=== PATIENT | female | born 1955 | race Caucasian/White ===

== ENCOUNTER 2019-02-09 10:39 | Emergency (ER) | payer BC ==
--- NOTE | 2019-02-09 11:15 | ED ---
HPI Chest Pain - HPI Summary HPI Summary: This patient is a 63 year old F presenting to [facility] accompanied by with a chief complaint of intermittent episodes of sharp chest pain located under her left breast lasting 10-15 seconds each time, last episode being at 10:52 today, since 02/06/19 (3 days ago). Patient denies nausea and shortness of breath. The patient rates the pain 0/10 in severity currently. Symptoms aggravated by deep breathing. Symptoms alleviated by nothing. Patients states that patient has had an intermittent cough since 2014. Patient's states that patient has been seen at [place] for her cough with no significant work up results. - History of Current Complaint Chief Complaint: EDChestPainROMI Time Seen by Provider: 02/09/19 10:48 Hx Obtained From: Patient, Family/Vocational Coordinator - Onset/Duration: Started Days Ago - 3, Still Present Timing: Intermittent, Lasting Seconds - 10-15 seconds Current Severity: None Pain Intensity: 0 Pain Scale Used: 0-10 Numeric Chest Pain Location: Discrete at: - under left breast Character: Sharp/Stabbing Aggravating Factor(s): Deep Breaths Alleviating Factor(s): Nothing Associated Signs and Symptoms: Positive: Negative - nausea, shortness of breath - Allergy/Home Medications Allergies/Adverse Reactions: Allergies Allergy/AdvReac Type Severity Reaction Status Date / Time nitrofurantoin Allergy See Comment Verified 02/09/19 10:50 [From Macrobid] PMH/Surg Hx/FS Hx/Imm Hx Endocrine/Hematology History: Denies: Hx Diabetes Cardiovascular History: Denies: Hx Hypertension, Hx Pacemaker/ICD Respiratory History: Denies: Hx Asthma History: Denies: Hx Renal Disease Sensory History: Denies: Hx Hearing Aid Psychiatric History: Denies: Hx Panic Disorder - Cancer History Cancer Type, Location and Year: BASAL CELL Hx Chemotherapy: No Hx Radiation Therapy: No Hx Palliative Cancer Treatment: No - Surgical History Surgical History: Yes Surgery Procedure, Year, and Place: TONSILLECTOMY;. HEART CATH (NO STENTS); Infectious Disease History: No Infectious Disease History: Denies: Traveled Outside the [place] in Last 30 Days - Family History Known Family History: Positive: Diabetes, Other - [place] - Social History Alcohol Use: None Hx Substance Use: No Substance Use Type: Reports: None Hx Tobacco Use: No Smoking Status (MU): Never Smoked Tobacco Review of Systems Positive: Chest Pain Negative: Shortness Of Breath Negative: Nausea All Other Systems Reviewed And Are Negative: Yes Physical Exam - Summary Physical Exam Summary: Appearance: The patient is well-nourished in no acute distress and in no acute pain. Skin: The skin is warm and dry and skin color reflects adequate perfusion. HEENT: The head is normocephalic and atraumatic. The pupils are equal and reactive. The conjunctivae are clear and without drainage. Nares are patent and without drainage. Mouth reveals moist mucous membranes and the throat is without erythema and exudate. The external ears are intact. The ear canals are patent and without drainage. The tympanic membranes are intact. Neck: The neck is supple with full range of motion and non-tender. There are no carotid bruits. There is no neck vein distension. Respiratory: Chest is non-tender. Lungs are clear to auscultation and breath sounds are symmetrical and equal. Cardiovascular: Heart is regular rate and rhythm. There is no murmur or rub auscultated. There is no peripheral edema and pulses are symmetrical and equal. Abdomen: The abdomen is soft and non-tender. There are normal bowel sounds heard in all four quadrants and there is no organomegaly palpated. Musculoskeletal: There is no back tenderness noted. Extremities are non-tender with full range of motion. There is good capillary refill. There is no peripheral edema or calf tenderness elicited. Neurological: Patient is alert and oriented to person, place and time. The patient has symmetrical motor strength in all four extremities. Cranial nerves are grossly intact. Deep tendon reflexes are symmetrical and equal in all four extremities. Triage Information Reviewed: Yes Vital Signs On Initial Exam: Initial Vitals Temp Pulse Resp BP Pulse Ox 97.9 F 62 18 151/83 98 02/09/19 10:40 02/09/19 10:40 02/09/19 10:40 02/09/19 10:40 02/09/19 10:40 Vital Signs Reviewed: Yes Diagnostics - Vital Signs Vital Signs Temp Pulse Resp BP Pulse Ox 02/09/19 10:40 97.9 F 62 18 151/83 98 - Laboratory Result Diagrams: 02/09/19 11:07 02/09/19 11:07 Lab Statement: Any lab studies that have been ordered have been reviewed, and results considered in the medical decision making process. - Radiology Chest Xray Radiology Interpretation Completed By: Radiologist Summary of Radiographic Findings: IMPRESSION: No active disease is noted. ED Physician has reviewed this report. - EKG 1043 Cardiac Rate: NL EKG Rhythm: Sinus Rhythm - [address] Segment: Normal Ectopy: None Summary of EKG Findings: Normal sinus rhythm at 62 bpm, normal ST, no ectopy, no STEMI Re-Evaluation - Re-Evaluation First Eval Re-Evaluation Time: 14:20 Comment: patient informed of bloodwork results, both troponin tests negative. patient is agreeable to discharge. Chest Pain Course/Dx - Course Course Of Treatment: Ms. Santo was nontoxic in appearance is stable vitals on arrival. She was kept on a monitor while EKG, chest x-ray and labs were obtained. These were unremarkable including a d-dimer and a delayed troponin. I don't think anything immediately dangerous is occurring and this seems likely that this is chest wall pain. I recommended follow-up with her PCP - Diagnoses Provider Diagnoses: Chest pain Discharge ED - Sign-Out/Discharge Documenting (check all that apply): Patient Departure - discharge Patient Received Moderate/Deep Sedation with Procedure: No - Discharge Plan Condition: Stable Disposition: HOME Patient Education Materials: Chest Pain (ED) Referrals: Carlo De Jesus MD [Primary Care Provider] - 3 Days Additional Instructions: Follow up with primary care physician in 2 to 3 days. Return to Emergency Department for new or worsening symptoms. - Billing Disposition and Condition Condition: STABLE Disposition: Home - Attestation Statements Document Initiated by Scribe: Yes Documenting Scribe: Vidya Fernandez Provider For Whom Uriel is Documenting (Include Credential): Enrrique Coronado MD Scribe Attestation: Vidya Boyd, scribed for Enrrique Coronado MD on 02/09/19 at 1645. Scribe Documentation Reviewed: Yes Provider Attestation: The documentation as recorded by the Vidya pedraza accurately reflects the service I personally performed and the decisions made by me, Enrrique Coronado MD Status of Scribe Document: Viewed
[2019-02-09 11:20] LABS: ABS Eosinophils 0.1 10^3/ul (0-0.6); ABS Lymphocytes 1.5 10^3/ul (1.0-4.8); ABS Monocytes 0.5 10^3/ul (0-0.8); ABS Neutrophils 3.1 10^3/ul (1.5-7.7); Eosinophil % 2.7 %; Hematocrit 40 % (35-47); Lymphocyte % 28.5 %; Mean Corpuscular HGB Conc 35 g/dL (31-36); Mean Corpuscular Hemoglobin 33 pg (27-31); Mean Corpuscular Volume 94 fL (80-97); Platelet Count 209 10^3/uL (150-450); Red Blood Count 4.28 10^6 /uL (3.70-4.87); Red Cell Distribution Width 13 % (10-15); White Blood Count 5.4 10^3/uL (3.5-10.8)
[2019-02-09 11:35] LABS: INR 0.97 (0.82-1.09)
[2019-02-09 11:36] LABS: Albumin 4.5 g/dL (3.2-5.2); Albumin/Globulin Ratio 1.9 (1-3); BUN/Creatinine Ratio 19.5 (8-20); Calcium 9.9 mg/dL (8.6-10.3); EGFR African American 91.9 (>60); Globulin 2.4 g/dL (2-4); Potassium 4.2 mmol/L (3.5-5.0); Total Bilirubin 0.4 mg/dL (0.2-1.0); Total Protein 6.9 g/dL (6.4-8.9)
[2019-02-09 14:47] VITALS: BP 123/76
== END 2019-02-09 14:49 | disposition home or self-care (01) ==
LOC: ED 10:39
DX: R07.9 Chest pain, unspecified (principal); Z88.1 Allergy status to other antibiotic agents
CPT/HCPCS: 36415; 71046; 80053; 84484; 85025; 85379; 85610; 93005; 99282